=== PATIENT | female | born 1955 | race Caucasian/White ===

== ENCOUNTER 2019-09-05 12:02 | Outpatient (CLI) | payer BC | END 2019-09-05 12:03 | disposition home or self-care (01) | LOC: COV 12:02 | PROVIDERS: ATTEND Family Medicine | DX: R50.9 Fever, unspecified (principal); R53.83 Other fatigue; R11.2 Nausea with vomiting, unspecified; Z20.828 Contact with and (suspected) exposure to other viral communicable diseases ==

== ENCOUNTER 2024-05-23 10:46 | Inpatient (IN) ==
[2024-05-23 11:49] LABS: BASOPHILS # (AUTO) 0.1 10^3/uL (0.0-0.1); BASOPHILS % (AUTO) 1.1 %; EOSINOPHILS # (AUTO) 0.1 10^3/uL (0.0-0.7); EOSINOPHILS % (AUTO) 1.8 %; HCT - HEMATOCRIT 36.9 % (37.0-47.0); HGB - HEMOGLOBIN 11.5 g/dL (12.0-16.0); LYMPHOCYTES % (AUTO) 23.2 %; MEAN CORPUSCULAR HEMOGLOBIN 22.5 pg (27.0-31.0); MEAN CORPUSCULAR HGB CONC 31.2 g/dL (32.0-36.0); MEAN CORPUSCULAR VOLUME 72.2 fL (81.0-99.0); MEAN PLATELET VOLUME 8.8 fL (7.9-10.8); MONOCYTES # (AUTO) 0.9 10^3/uL (0.0-1.0); MONOCYTES % (AUTO) 20.9 %; NEUTROPHILS # (AUTO) 2.3 10^3/uL (1.5-6.6); NEUTROPHILS % (AUTO) 52.5 %; PLT - PLATELET COUNT 394 10^3/uL (130-450); RED BLOOD COUNT 5.11 10^6/uL (4.20-5.40); WHITE BLOOD COUNT 4.4 x10^3/uL (4.8-10.8)
--- NOTE | 2024-05-23 12:03 | ED Physician Documentation ---
History of Present Illness Stated complaint Stated Complaint: N,D Chief complaint Chief Complaint: Abd Pain History obtained from History obtained from: Patient Additonal information Additional information: This is a 69-year-old woman with history of insomnia, gastric bypass 17 years ago who presents for the evaluation of nausea, diarrhea and stomach cramps. For the last week she has had severe diarrhea, she estimates 20 times a day. It is not associated with bloody stool.. She has cramps with it and nausea but has not vomited. She has been very weak with this and basically stayed in bed for 4 days. She notes that she has a history of anemia and is being scheduled for both colonoscopies and hematology consult neither which have happened yet. She denies recent travel. No recent antibiotics. No sick contacts. Meds/Allgy Home Medications Ambulatory Orders Medication Instructions Recorded Confirmed alprazolam 1 mg tablet 1 mg PO QDAY 12/05/23 05/23/24 hydroxyzine HCl 10 mg tablet 10 mg PO TID PRN itching 12/05/23 05/23/24 trazodone 50 mg tablet 50 mg PO QDAY 12/05/23 05/23/24 ramelteon 8 mg tablet 8 mg PO DAILY 05/23/24 05/23/24 Allergies Allergies Allergy/AdvReac Type Severity Reaction Status Date / Time ondansetron Allergy Severe Rash Verified 05/23/24 11:19 PFSH Active Problems All Active Problems (Updated 05/23/24 @ 14:33 by Neel Gallagher MD) KEY (acute kidney injury) (Acute) Diarrhea (Acute) Abnormal laboratory test result (Acute) Hyponatremia (Acute) Microcytic hypochromic anemia (Acute) Neutrophilia (Acute) Medical History Medical History Asthma Surgical History Surgical History H/O hernia repair Bariatric surgery status Social History Social History (Updated 05/23/24 @ 12:38 by Ricardo Shannon RN, BSN) Smoking Status: Never smoker Relationship: Do you feel safe in your home environment?: Yes Suffered physical, verbal, emotional, or financial abuse?: No Exam Exam Vital Signs: Vital Signs x48h Temp Pulse Resp BP Pulse Ox 05/23/24 13:57 75 154/81 H 99 05/23/24 11:19 36.5 C 92 16 111/80 100 Constitutional normal general appearance and no apparent distress She is quite thin, I noticed that the nurse put in her weight is 98.2 kg. Suspect it is 98.2 pounds. Cardiovascular normal heart rate noted, regular rhythm noted and no murmur Gastrointestinal abdomen soft to palpation and nontender to palpation Diminished bowel tones Results Vitals Vitals: Vital Signs - 24 hr 05/23/24 11:19 05/23/24 13:57 Temperature 36.5 C Temperature Source Temporal Artery Scan Pulse Rate 92 75 Respiratory Rate 16 Blood Pressure 111/80 154/81 H O2 Saturation 100 99 O2 Source Room air Room air Pain Intensity 3 0 Oxygen O2 Source Room air Labs Labs: Laboratory Tests 05/23/24 05/23/24 11:41 13:53 WBC 4.4 L RBC 5.11 Hgb 11.5 L Hct 36.9 L MCV 72.2 L MCH 22.5 L MCHC 31.2 L RDW 19.0 H Plt Count 394 MPV 8.8 Neut # (Auto) 2.3 Lymph # (Auto) 1.0 L [place] # (Auto) 0.9 Eos # (Auto) 0.1 Baso # (Auto) 0.1 Absolute Nucleated RBC 0.00 Nucleated RBC % 0.0 Sodium 133 L Potassium 3.1 L Chloride 100 L Carbon Dioxide 23 Anion Gap 10.0 BUN 51 H Creatinine 2.7 H Estimated GFR (MDRD) 18 L Glucose 117 H Calcium 9.5 Iron 38 L TIBC 482 H % Saturation 8 L Transferrin 344 Total Bilirubin 0.5 AST 18 ALT 14 Alkaline Phosphatase 50 Total Protein 7.7 Albumin 4.3 Globulin 3.4 Albumin/Globulin Ratio 1.3 Lipase 27 Urine Color YELLOW Urine Clarity CLEAR Urine pH 5.5 Ur Specific [place] <=1.005 Urine Protein NEGATIVE Urine Glucose (UA) NEGATIVE Urine Ketones NEGATIVE Urine Occult Blood MODERATE H Urine Nitrite NEGATIVE Urine Bilirubin NEGATIVE Urine Urobilinogen 0.2 (NORMAL) Ur Leukocyte Esterase NEGATIVE Ur Microscopic Review INDICATED Urine Culture Comments Not Reportable Rads (name of study) CT Abd: Relevant Findings:: Final report received and EMP independent interpretation of test (NAD) PD Medical Decision Making ED course ED course: This is a 69-year-old woman status post remote gastric bypass and she is now actually quite thin. She presents with a weeks worth of diarrhea and nausea without vomiting. She has abdominal cramps but not pain per se. She has a benign exam. Workup demonstrates KEY without CKD. She has a mild microcytic anemia on CBC and a prerenal pattern with BUN of 51 and creatinine of 2.7. Her potassium was mildly low at 3.1. CT with oral but not IV contrast was basically negative. She did give us a stool sample in the department with results pending on decision to admit. Given the KEY spoke with Dr. Donahue for observation at 2:30 PM. The patient and family are counseled as to the diagnosis and need for admission. This document was made in part using voice recognition software, while efforts are made to proofread this document, sound alike an grammatical errors may occur. Discharge Plan Discharge Patient Disposition: ED Place in Observation Condition: Stable Clinical Impression: KEY (acute kidney injury) Diarrhea Qualifiers: Diarrhea type: unspecified type Qualified Code(s): R19.7 - Diarrhea, unspecified Prescriptions: No Action ramelteon 8 mg tablet 8 mg PO DAILY Patient Comments: take 1 tablet by mouth at bedtime alprazolam 1 mg tablet 1 mg PO QDAY hydroxyzine HCl 10 mg tablet 10 mg PO TID PRN (Reason: itching) trazodone 50 mg tablet 50 mg PO QDAY Print Language: Malay Stand Alone Forms: PCP List
[2024-05-23 12:06] LABS: ALBUMIN 4.3 g/dL (3.2-5.5); ALBUMIN/GLOBULIN RATIO 1.3 (1.0-2.2); BILIRUBIN,TOTAL 0.5 mg/dL (0.2-1.0); CALCIUM 9.5 mg/dL (8.5-10.3); CREATININE 2.7 mg/dL (0.6-1.3); POTASSIUM 3.1 mmol/L (3.5-4.5); TOTAL PROTEIN 7.7 g/dL (6.4-8.9)
[2024-05-23] MEDS ORDERED: DIATRIZOATE MEGLU/DIATRIZO SOD 30 ML BOTTLE PO ONE (12:24)
[2024-05-23 12:41] LABS: % IRON SATURATION 8 % (20-50); IRON 38 ug/dL (50-212); TOTAL IRON BINDING CAPACITY 482 ug/dL (250-450); TRANSFERRIN 344 mg/dL (203-362)
[2024-05-23] MEDS: SODIUM CHLORIDE 0.9% 1,000 ML IV STA ×2 (12:49→12:50)
[2024-05-23] MEDS: POTASSIUM BICARB 25 MEQ TABLET PO STA (12:50)
[2024-05-23] MEDS: METOCLOPRAMIDE 10 MG/2 ML VIAL IVP STA (12:50)
[2024-05-23 14:15] LABS: BILIRUBIN,URINE NEGATIVE (NEGATIVE); CLARITY,URINE CLEAR (CLEAR); GLUCOSE, URINE (UA) NEGATIVE (NEGATIVE); KETONES,URINE (UA) NEGATIVE (NEGATIVE); LEUKOCYTE ESTERASE, URINE NEGATIVE (NEGATIVE); NITRITE,URINE NEGATIVE (NEGATIVE); OCCULT BLOOD,URINE MODERATE (NEGATIVE); PH,URINE 5.5 PH (5.0-7.5); PROTEIN,URINE NEGATIVE (NEGATIVE); UROBILINOGEN,URINE 0.2 (NORMAL) E.U./dL (NORMAL)
--- NOTE | 2024-05-23 14:24 | CT Report ---
PROCEDURE: CT Abdomen/Pelvis WO INDICATIONS: PO! diarhea, hx gastric bypass TECHNIQUE: A CT scan of the abdomen and pelvis was performed without the use of intravenous contrast. Images we re recorded and evaluated at appropriate window settings. Reformats: coronal and sagittal. For radiat ion dose reduction, the following was used: automated exposure control, adjustment of mA and/or kV ac cording to patient size. COMPARISON: None. FINDINGS: Image quality: Diagnostic. Lower chest: Unremarkable. Liver: No contour-deforming mass. Gallbladder: No radiopaque stones or wall thickening. Biliary tree: No intrahepatic or extrahepatic dilation, accounting for age. Spleen: No splenomegaly. Pancreas: No pancreatic ductal dilation. Adrenals: No adrenal nodule. Kidneys and ureters: No hydronephrosis. No contour-deforming mass. Stomach, bowel and peritoneum: No gastric or small bowel dilation. No abnormal wall thickening. No pa thologic free fluid. Normal appendix. Prior gastric bypass. No significant diverticular disease. Lymph nodes: No central or retroperitoneal adenopathy. Vessels: No infrarenal aortic aneurysm. Reproductive organs: Unremarkable. Bladder: No abnormal bladder wall thickening. No calcified bladder stones. Pelvic lymph nodes: No adenopathy by size criteria. Bones: No aggressive osseous abnormality. Other: No significant ventral or inguinal hernia. IMPRESSION: No acute abnormality. Normal appendix. No significant diverticular disease. No bowel obstruction, status post gastric bypass. Reviewed by: Terry Pimentel MD on 05/23/2024 2:23 PM PDT Approved by: Terry Pimentel MD on 05/23/2024 2:23 PM PDT Station ID: [id number]
[2024-05-23 14:48] LABS: BACTERIA,URINE Moderate /HPF (None Seen); RBC,URINE 0-5 /HPF (0-5); SQUAMOUS EPITHELIAL CELL,UR MOD Squamous (<= Few)
[2024-05-23] MEDS ORDERED: ONDANSETRON 4 MG/2 ML VIAL IVP PRN (15:56)
[2024-05-23] MEDS ORDERED: oxyCODONE 5 MG TABLET PO PRN (15:56)
[2024-05-23] MEDS ORDERED: SODIUM CHLORIDE FLUSH 0.9% 10 ML SYRINGE IVP PRN (15:56)
[2024-05-23] MEDS ORDERED: ONDANSETRON ODT 4 MG TABLET TL PRN (15:56)
[2024-05-23] MEDS ORDERED: HYDROXYZINE 10MG TABLET PO PRN (16:25)
[2024-05-23] MEDS: LACTATED RINGERS 1,000 ML IV SCH (16:28)
[2024-05-23] MEDS: SODIUM CHLORIDE FLUSH 0.9% 10 ML SYRINGE IVP SCH (16:29)
--- NOTE | 2024-05-23 16:55 | PHARMACY PROGRESS NOTE ---
Best Possible Medication History Admit Date and Time: 05/23/24 1507 Home Medications Medication Instructions Recorded Confirmed Type alprazolam 1 mg tablet 0.5 mg PO HS 12/05/23 05/23/24 History trazodone 50 mg tablet 50 mg PO QDAY 12/05/23 05/23/24 History alendronate 70 mg tablet 70 mg PO ONCE 05/23/24 05/23/24 History baclofen 10 mg tablet 10 mg PO TID PRN muscle spasm 05/23/24 05/23/24 History citalopram 40 mg tablet 40 mg PO ONCE 05/23/24 05/23/24 History hydroxyzine HCl 25 mg tablet 25 mg PO HS 05/23/24 05/23/24 History ramelteon 8 mg tablet 8 mg PO DAILY 05/23/24 05/23/24 History tolterodine 2 mg capsule,extended 2 mg PO ONCE 05/23/24 05/23/24 History release 24 hr Processed by: Pharmacy Medications reviewed in ED?: No Medication History completed: Yes Patient Interview: Completed Secondary Source(s): Insurance records [facility] Statement: Per [facility] interview and [facility]. As the person ultimately responsible for medication therapy, providers are able to order a medication from an existing home medication list in [facility] via the "Reconcile Routine" prior to Confirmation of that medication by support representative. Such practice is discouraged except when the physician, in their clinical judgment, deems that a medical need exists for a medication without regard to previous use.
--- NOTE | 2024-05-23 17:20 | PROVIDER PROGRESS NOTE ---
Subjective Prog Note Date Prog Note Date: 05/23/24 Prog Note Time: 03:04 Subjective Subjective: Shari is a 69 y/o female with a history of Roue-en-y gastric bypass, umbilical hernia, and valvular HD presenting with diarrhea for 7 days since 05/16. She reports fever for 3 days at the beginning of her acute illness. Her CT abdomen w/o contrast on 05/23 was unremarkable--no signs of obstruction, hydronephrosis, diverticular disease, or other pathologies. She denies bloody stools, vomiting, sweating, or palpitations. Denies recent travel or exposures. She and her maintain a second home in [place] and she [place] [facility] and [facility]. The patient denies prior history of diarrhea, even after gastric bypass. She reports possible untreated diabetes. She reports her last colonoscopy was possibly 10 years ago and she is due for a repeat. She denies any GI issues including ulcers or food intolerances or previous food poisoning. The patient reports consuming BRAT diet d/t illness and requested to continue solid food. OB: Shari had two pregnancies via and menopause at age 51. Past medical/surgical: gastric bypass Roue-en-y, right knee repair, left shoulder repair, and umbilical hernia repair. Social: The patient is to her second , has two adult children, and one sister diagnosed with ALS for whom she is a caregiver. She denies alcohol, tobacco or other substance use. Family: both parents . Meds: Alendronate 70mg PO once, alprazolam 0.5 mg HS, baclofen 10mg PO TID PRN, citalopram 40mg PO once, hydroxyzine HCL 25mg PO HS, ramelteon 8mg PO daily, tolterodine 2mg PO once, trazodone 50mg PO qday. Supplements: Vitamin D and calcium. Allergies: Ondansetron (rash). Current Medications Current Medications Current Medications: Current Medications Generic Name Dose Route Start Last Admin Trade Name Freq PRN Reason Stop Dose Admin Acetaminophen 650 mg 05/23/24 15:56 Acetaminophen 325 Mg Tablet PO Q4HR PRN Pain 1 to 4, or Fever Alprazolam 1 mg 05/23/24 16:00 Alprazolam 0.25 Mg Tablet PO Q24H JACKELYN Lactated Ringer's 1,000 mls @ 100 mls/hr 05/23/24 16:00 Lr IV .Q10H [facility] Non-Formulary Medication 10 mg 05/23/24 15:56 Hydroxyzine Hcl PO TID PRN itching Ondansetron HCl 4 mg 05/23/24 15:56 Ondansetron Odt 4 Mg Tablet TL Q6HR PRN Nausea / Vomiting Ondansetron HCl 4 mg 05/23/24 15:56 Ondansetron 4 Mg/2 Ml Vial IVP Q6HR PRN Nausea / Vomiting Oxycodone HCl 5 mg 05/23/24 15:56 Oxycodone 5 Mg Tablet PO Q4HR PRN Pain 5 to 7 Rozerem 8mg Tabs 1 each 05/24/24 09:00 PO DAILY [facility] Sodium Chloride 10 ml 05/23/24 15:56 Sodium Chloride Flush 0.9% 10 Ml Syringe IVP PRN PRN NEEDED PER PROVIDER ORDERS Sodium Chloride 10 ml 05/23/24 17:00 Sodium Chloride Flush 0.9% 10 Ml Syringe IVP 0100,0900,1700 [facility] Trazodone HCl 50 mg 05/23/24 21:00 Trazodone 50 Mg Tablet PO QPM [facility] Objective Vital Signs/Intake & Output Reviewed Vital Signs: Yes Vital Signs: Vital Signs x48h Temp Pulse Resp BP Pulse Ox 05/23/24 15:50 82 16 117/82 100 05/23/24 15:00 72 14 161/86 H 98 05/23/24 13:57 75 154/81 H 99 05/23/24 11:19 36.5 C 92 16 111/80 100 Intake & Output: Intake & Output 05/20/24 05/21/24 05/22/24 05/23/24 23:59 23:59 23:59 23:59 Intake Total 1999 Balance 1999 Weight (kg) 46 kg Objective General Appearance: positive No acute distress, Alert and Lethargic Eyes Bilateral: positive Normal inspection, PERRL, No lid inflammation and Other (arcus senilis) Neck: positive Nml inspection Respiratory: positive Chest non-tender, No respiratory distress and Breath sounds nml Cardiovascular: positive Regular rate & rhythm Peripheral Pulses: 2+: Posterior tibialis (R) and 2+: Posterior tibialis (L) Abdomen: positive Non-tender, No organomegaly and No distention Back: positive Nml inspection Skin: positive No rash, Dry, Pallor and Other (Cold) Extremities: positive Non-tender, Full ROM, Nml appearance and No pedal edema Neurologic/Psychiatric: positive Oriented x3, Motor nml, Sensation nml and Mood/affect nml Lab Results 05/23/24 11:41 05/23/24 11:41 Other Labs: Lab Results x24hrs 05/23/24 05/23/24 05/23/24 Range/Units 14:24 13:53 13:53 WBC (4.8-10.8) x10^3/uL RBC (4.20-5.40) 10^6/uL Hgb (12.0-16.0) g/dL Hct (37.0-47.0) % MCV (81.0-99.0) fL MCH (27.0-31.0) pg MCHC (32.0-36.0) g/dL RDW (12.0-15.0) % Plt Count (130-450) 10^3/uL MPV (7.9-10.8) fL Neut # (Auto) (1.5-6.6) 10^3/uL Lymph # (Auto) (1.5-3.5) 10^3/uL [place] # (Auto) (0.0-1.0) 10^3/uL Eos # (Auto) (0.0-0.7) 10^3/uL Baso # (Auto) (0.0-0.1) 10^3/uL Absolute Nucleated RBC x10^3/uL Nucleated RBC % /100WBC Sodium (135-145) mmol/L Potassium (3.5-4.5) mmol/L Chloride (101-111) mmol/L Carbon Dioxide (21-32) mmol/L Anion Gap (6-13) BUN (6-20) mg/dL Creatinine (0.6-1.3) mg/dL Estimated GFR (MDRD) (>89) Glucose (74-104) mg/dL Calcium (8.5-10.3) mg/dL Iron (50-212) ug/dL TIBC (250-450) ug/dL % Saturation (20-50) % Transferrin (203-362) mg/dL Total Bilirubin (0.2-1.0) mg/dL AST (10-42) IU/L ALT (10-60) IU/L Alkaline Phosphatase (42-121) IU/L Total Protein (6.4-8.9) g/dL Albumin (3.2-5.5) g/dL Globulin (2.1-4.2) g/dL Albumin/Globulin Ratio (1.0-2.2) Lipase (11-82) U/L Urine Color YELLOW Urine Clarity CLEAR (CLEAR) Urine pH 5.5 (5.0-7.5) PH Ur Specific [place] <=1.005 (1.002-1.030) Urine Protein NEGATIVE (NEGATIVE) mg/dL Urine Glucose (UA) NEGATIVE (NEGATIVE) mg/dL Urine Ketones NEGATIVE (NEGATIVE) mg/dL Urine Occult Blood MODERATE H (NEGATIVE) Urine Nitrite NEGATIVE (NEGATIVE) Urine Bilirubin NEGATIVE (NEGATIVE) Urine Urobilinogen 0.2 (NORMAL) (NORMAL) E.U./dL Ur Leukocyte Esterase NEGATIVE (NEGATIVE) Urine RBC 0-5 (0-5) /HPF Urine WBC 4-5 (0-5) /HPF Ur Squamous Epith Cells MOD Squamous H (<= Few) Urine Bacteria Moderate H (None Seen) /HPF Urine Casts 0-2 Granular Casts 0-2 Hyaline Casts /LPF Ur Microscopic Review INDICATED Urine Culture Comments NOT INDICATED Stl C. diff Tox B Gene NEGATIVE (NEGATIVE) 05/23/24 Range/Units 11:41 WBC 4.4 L (4.8-10.8) x10^3/uL RBC 5.11 (4.20-5.40) 10^6/uL Hgb 11.5 L (12.0-16.0) g/dL Hct 36.9 L (37.0-47.0) % MCV 72.2 L (81.0-99.0) fL MCH 22.5 L (27.0-31.0) pg MCHC 31.2 L (32.0-36.0) g/dL RDW 19.0 H (12.0-15.0) % Plt Count 394 (130-450) 10^3/uL MPV 8.8 (7.9-10.8) fL Neut # (Auto) 2.3 (1.5-6.6) 10^3/uL Lymph # (Auto) 1.0 L (1.5-3.5) 10^3/uL [place] # (Auto) 0.9 (0.0-1.0) 10^3/uL Eos # (Auto) 0.1 (0.0-0.7) 10^3/uL Baso # (Auto) 0.1 (0.0-0.1) 10^3/uL Absolute Nucleated RBC 0.00 x10^3/uL Nucleated RBC % 0.0 /100WBC Sodium 133 L (135-145) mmol/L Potassium 3.1 L (3.5-4.5) mmol/L Chloride 100 L (101-111) mmol/L Carbon Dioxide 23 (21-32) mmol/L Anion Gap 10.0 (6-13) BUN 51 H (6-20) mg/dL Creatinine 2.7 H (0.6-1.3) mg/dL Estimated GFR (MDRD) 18 L (>89) Glucose 117 H (74-104) mg/dL Calcium 9.5 (8.5-10.3) mg/dL Iron 38 L (50-212) ug/dL TIBC 482 H (250-450) ug/dL % Saturation 8 L (20-50) % Transferrin 344 (203-362) mg/dL Total Bilirubin 0.5 (0.2-1.0) mg/dL AST 18 (10-42) IU/L ALT 14 (10-60) IU/L Alkaline Phosphatase 50 (42-121) IU/L Total Protein 7.7 (6.4-8.9) g/dL Albumin 4.3 (3.2-5.5) g/dL Globulin 3.4 (2.1-4.2) g/dL Albumin/Globulin Ratio 1.3 (1.0-2.2) Lipase 27 (11-82) U/L Urine Color Urine Clarity (CLEAR) Urine pH (5.0-7.5) PH Ur Specific [place] (1.002-1.030) Urine Protein (NEGATIVE) mg/dL Urine Glucose (UA) (NEGATIVE) mg/dL Urine Ketones (NEGATIVE) mg/dL Urine Occult Blood (NEGATIVE) Urine Nitrite (NEGATIVE) Urine Bilirubin (NEGATIVE) Urine Urobilinogen (NORMAL) E.U./dL Ur Leukocyte Esterase (NEGATIVE) Urine RBC (0-5) /HPF Urine WBC (0-5) /HPF Ur Squamous Epith Cells (<= Few) Urine Bacteria (None Seen) /HPF Urine Casts /LPF Ur Microscopic Review Urine Culture Comments Stl C. diff Tox B Gene (NEGATIVE) Diagnostic Imaging Diagnostic Imaging Results: positive Final report reviewed ABX Reporting Has patient been on IV antibiotics over the past 48 hours?: No Assessment/Plan Problem List (1) KEY (acute kidney injury): (2) Diarrhea: Qualifiers: Diarrhea type: unspecified type Qualified Code(s): R19.7 - Diarrhea, unspecified (3) Abnormal laboratory test result: (4) Hyponatremia: (5) Microcytic hypochromic anemia: (6) Neutrophilia:
--- NOTE | 2024-05-23 17:41 | HISTORY & PHYSICAL EXAMINATION ---
Chief Complaint Chief Complaint Chief Complaint: diarrhea and abdominal pain History of Present Illness Admitted From Admitted From:: home History Obtained From Records Reviewed: [facility] History obtained from: patient Exam Limitations: none History of Present Illness HPI Comment/Other: Shari is a 69 y/o female with a history of Roue-en-y gastric bypass, umbilical hernia, and valvular HD presenting with diarrhea for 7 days since 05/16. She reports fever for 3 days at the beginning of her acute illness. Her CT abdomen w/o contrast on 05/23 was unremarkable--no signs of obstruction, hydronephrosis, diverticular disease, or other pathologies. She denies bloody stools, vomiting, sweating, or palpitations. Denies recent travel or exposures. She and her maintain a second home in [place] and she travels between [facility] and [facility]. The patient denies prior history of diarrhea, even after gastric bypass. She reports possible untreated diabetes. She reports her last colonoscopy was possibly 10 years ago and she is due for a repeat. She denies any GI issues including ulcers or food intolerances or previous food poisoning. The patient reports consuming BRAT diet d/t illness and requested to continue solid food. Meds/Allgy Home Medications Ambulatory Orders Medication Instructions Recorded Confirmed alprazolam 1 mg tablet 0.5 mg PO HS 12/05/23 05/23/24 trazodone 50 mg tablet 50 mg PO QDAY 12/05/23 05/23/24 alendronate 70 mg tablet 70 mg PO ONCE 05/23/24 05/23/24 baclofen 10 mg tablet 10 mg PO TID PRN muscle spasm 05/23/24 05/23/24 citalopram 40 mg tablet 40 mg PO ONCE 05/23/24 05/23/24 hydroxyzine HCl 25 mg tablet 25 mg PO HS 05/23/24 05/23/24 ramelteon 8 mg tablet 8 mg PO DAILY 05/23/24 05/23/24 tolterodine 2 mg capsule,extended 2 mg PO ONCE 05/23/24 05/23/24 release 24 hr Allergies Allergies Allergy/AdvReac Type Severity Reaction Status Date / Time ondansetron Allergy Severe Rash Verified 05/23/24 11:19 PFSH Active Problems All Active Problems (Updated 05/23/24 @ 17:55 by Laura Olmstead) Hypokalemia (Acute) KEY (acute kidney injury) (Acute) Diarrhea (Acute) Abnormal laboratory test result (Acute) Hyponatremia (Acute) Microcytic hypochromic anemia (Acute) Neutrophilia (Acute) Medical History Medical History (Updated 05/23/24 @ 17:55 by Laura Olmstead) Splenic rupture fell off a kitchen counter and hit corner to rupture spleen and lacerate kidney. had surgery History of umbilical hernia Right patella fracture Multiparity 2 pregnancies Asthma Surgical History Surgical History (Updated 05/23/24 @ 17:47 by Laura Olmstead) Status post total shoulder arthroplasty H/O gastric bypass History of 2 H/O hernia repair Bariatric surgery status Family History Family History (Updated 05/23/24 @ 17:49 by Laura Olmstead) Mother Alzheimers disease Father Alzheimers disease Sister ALS (amyotrophic lateral sclerosis) Son Well adult exam Social History Social History (Updated 05/23/24 @ 17:51 by Laura Olmstead) Smoking Status: Former smoker If you are a former smoker, when did you quit? (Date/Year): 1978 Number of Years Smoked: 4 How many cigarettes a day do you smoke? (20 cigarettes=1 Pk): 5 Second hand tobacco smoke exposure: No Do you dip or chew tobacco?: No Living arrangement: At home Marital Status: Living Condition: With spouse/s.o. Support Person: Yes Relationship: Spouse Living Situation Details: to 2nd , home in [facility]. 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 Retired: Yes Service: No POLST Patient has POLST: No POLST Status: Full Code Review of Systems Constitutional Reports: Fever (for first 3 days of diarrea), Chills, Malaise, Weakness (couldn't get out of bed for 2 days) and Changes in appetite or eating habits (no appetite); Denies: Fatigue Eyes Denies: Pain, Irritation, Amaurosis, Blurry vision or Seeing flashes Ears, nose, mouth, and throat Denies: Ear pain, Mouth pain, Difficulty swallowing, Neck pain or Throat swelling Cardiovascular Reports: other (has a murmur of regurg but doesn't know which one); Denies: Irregular heart rate, chest pain, palpitations, edema, swelling of feet/ankles, Syncope or shortness of breath with exertion Respiratory Denies: Shortness of breath, Cough, Sputum production, Change in phlegm color or Wheezing Gastrointestinal Reports: Abdominal pain, Abdominal distention, Nausea, Poor appetite and Diarrhea; Denies: Bile emesis, Mauricio blood emesis, Coffee grounds in vomit, Heartburn, Difficulty swallowing, Melena, Blood in stool or Mucus in stool Genitourinary Denies: Painful urination, Urinary frequency, Urinary urgency, Nocturia, Urinary incontinence or Blood in urine Musculoskeletal Denies: Neck pain, Extremity pain or Extremity swelling Integumentary/Breast Denies: Rash, Itching or Dryness Neurological Reports: Dizziness (with this); Denies: Headache Psychiatric Reports: Other (worrier all the time) Endocrine Reports: Other (thinks she is a diabetic not sure); Denies: Fatigue Hematologic/Lymphatic Reports: Anemia (seen on labs for gastric bypass); Denies: Easy bruising or Petechiae Allergic/Immunologic Denies: Throat swelling or Wheezing Prior Level of Functionality: no use of DME. Independent with ADLs. drives, pays bills Exam Exam Vital Signs: Vital Signs x48h Temp Pulse Pulse Resp BP Pulse Ox 05/24/24 07:24 36.1 C L 80 16 109/58 L 97 05/24/24 04:07 36.5 C 88 16 110/57 L 97 Constitutional normal general appearance and alert [facility] normocephalic Eyes PERRL and EOMs intact bilaterally arcus senilis Neck/C-Spine visual inspection normal Chest inspection of chest normal Respiratory breath sounds equal bilaterally, normal respiratory effort, clear to auscultation bilaterally, no wheezes and no rales Cardiovascular normal heart rate noted and regular rhythm noted Gastrointestinal abdomen normal to inspection, abdomen soft to palpation, nontender to palpation and nondistended Back/Pelvis spine normal to inspection Extremities normal to inspection, normal to palpation, no tenderness and full ROM Neurology no movement abnormality noted, gait normal and speech normal Psychiatry mental status grossly normal, oriented x3, thought process normal, cooperative and affect normal Skin no rash, no lesions, no ecchymosis noted, no wounds and nails normal Pallor Conclusion/Plan Problem List (1) KEY (acute kidney injury): Plan: Creatinine: 2.7 mg/dL. BUN: 57 mg/dL. GFR: 18. Patient was severely dehydrated on admission d/t acute diarrheal illness x7 days. She is currently receiving lactated ringers 100 mls/hr and was given normal saline open mls/hr. Recheck creatinine, GFR, and BUN for improvement tomorrow morning 05/24. (2) Diarrhea: Plan: Patient reports diarrhea x7 days. CT abdomen w/o contrast was unremarkable. Labs ordered are stool PCR, culture, O&P pending. C. difficile PCR was negative. Patient was given Lomitil 1 tab PO QID PRN to treat diarrhea. Qualifiers: Diarrhea type: unspecified type Qualified Code(s): R19.7 - Diarrhea, unspecified (3) Hyponatremia: Plan: Sodium in ED was 133 mmol/L. Patient was given wide open mls/hr normal saline in ED. Sodium will be rechecked 05/24. (4) Hypokalemia: Plan: Potassium was 100 mmol/L. Patient was given potassium bicarbonate in ED 25 meq PO once. Potassium will be rechecked 05/24. (5) Microcytic hypochromic anemia: Plan: Patient's iron, hemoglobin, TIBC, and iron saturation were significantly low. Will follow up with CBC again tomorrow 05/24 to recheck after hydration. Recommending outpatient IV iron infusion. Vitamin B12 on 05/24 is elevated at 1258 pg/mL. Will recommend following up with PCP to monitor. (6) Neutrophilia: Plan: Neutrophilia is likely the result of the patient's dehydration. Recheck neutrophil count (CBC) after patient has been adequately hydrated on 05/24. Plan Address acute KEY as a result of diarrheal illness with goal of decreasing creatinine, BUN and increasing GFR. Stabilize sodium and potassium levels. Patient will address chronic anemia with her PCP and is following up with a carbon paper interleafer. Continue Lomitil PRN until diarrhea resolves. Stool labs are pending. Lab Results Lab results reviewed: Yes 05/24/24 04:05 05/24/24 04:05 Diagnostic Imaging Results Diagnostic Imaging Results: positive Final report reviewed
[2024-05-23] MEDS: ALPRAZolam 0.25 MG TABLET PO SCH ×2 (17:55→22:48)
[2024-05-23] MEDS: LACTATED RINGERS 500 ML IV ONE (21:43)
[2024-05-23] MEDS: hydrOXYzine PAMOATE 25 MG CAPSULE PO SCH (22:47)
[2024-05-23] MEDS: traZODone 50 MG TABLET PO SCH (22:47)
[2024-05-24] MEDS: DIPHENOX/ATROPINE 2.5/0.025 MG TABLET PO PRN (04:13)
[2024-05-24 04:44] LABS: BASOPHILS % (AUTO) 0.8 %; EOSINOPHILS # (AUTO) 0.1 10^3/uL (0.0-0.7); EOSINOPHILS % (AUTO) 2.6 %; HCT - HEMATOCRIT 26.3 % (37.0-47.0); HGB - HEMOGLOBIN 8.3 g/dL (12.0-16.0); LYMPHOCYTES # (AUTO) 1.1 10^3/uL (1.5-3.5); LYMPHOCYTES % (AUTO) 27.4 %; MEAN CORPUSCULAR HEMOGLOBIN 22.7 pg (27.0-31.0); MEAN CORPUSCULAR HGB CONC 31.6 g/dL (32.0-36.0); MEAN CORPUSCULAR VOLUME 71.9 fL (81.0-99.0); MEAN PLATELET VOLUME 9.2 fL (7.9-10.8); MONOCYTES # (AUTO) 0.7 10^3/uL (0.0-1.0); MONOCYTES % (AUTO) 18.9 %; PLT - PLATELET COUNT 267 10^3/uL (130-450); RED BLOOD COUNT 3.66 10^6/uL (4.20-5.40); RED CELL DISTRIBUTION WIDTH 18.6 % (12.0-15.0); WHITE BLOOD COUNT 3.9 x10^3/uL (4.8-10.8)
[2024-05-24 04:56] LABS: CALCIUM 8.3 mg/dL (8.5-10.3); CREATININE 1.2 mg/dL (0.6-1.3); POTASSIUM 3.5 mmol/L (3.5-4.5)
[2024-05-24 05:25] LABS: ABSOLUTE RETICS # AUTO 0.018 10^6/uL (0.020-0.110); RED BLOOD COUNT 3.64 10^6/uL (4.20-5.40); RETICULOCYTE COUNT % (AUTO) 0.48 % (0.5-2.3)
[2024-05-24 05:33] LABS: IRON 38 ug/dL (50-212); TRANSFERRIN 225 mg/dL (203-362)
[2024-05-24 06:09] LABS: ADENOVIRUS F 40/41 Not Detected (Not Detected); ASTROVIRUS Not Detected (Not Detected); C DIFFICILE TOXIN A/B Not Detected (Not Detected); CAMPYLOBACTER Detected (Not Detected); CRYPTOSPORIDIUM Not Detected (Not Detected); CYCLOSPORA CAYETANENSIS Not Detected (Not Detected); ENTAMOEBA HISTOLYTICA Not Detected (Not Detected); ENTEROAGGREGATIVE E COLI Not Detected (Not Detected); ENTEROPATHOGENIC E COLI Not Detected (Not Detected); ENTEROTOXIGENIC E COLI Not Detected (Not Detected); GIARDIA LAMBLIA Not Detected (Not Detected); NOROVIRUS GI/GII Not Detected (Not Detected); PLESIOMONAS SHIGELLOIDES Not Detected (Not Detected); ROTAVIRUS A Not Detected (Not Detected); SALMONELLA Not Detected (Not Detected); SAPOVIRUS Not Detected (Not Detected); SHIGA-TOXIN-PRODUCING E COLI Not Detected (Not Detected); SHIGELLA/ENTEROINVASIVE E COLI Not Detected (Not Detected); VIBRIO Not Detected (Not Detected); VIBRIO CHOLERAE Not Detected (Not Detected); YERSINIA ENTEROCOLITICA Not Detected (Not Detected)
[2024-05-24] MEDS: ROZEREM 8 MG PO SCH (10:40)
--- NOTE | 2024-05-24 11:19 | PROVIDER PROGRESS NOTE ---
<Statement entered by Sebastian Hoyos MD - 05/24/24 21:00> I have evaluated and examined the pt and agree with the note below with the following additions and corrections: Continued watery diarrhea, nonbloody, minimal abd pain. Tolerating po intake. No gross bleeding. Notes chronic history of anemia and "abnormal" blood tests in recent months. She has f/u with hematology and PMD. H/o gastric bypass noted. Labs indicate Fe deficiency- likely poor absorption in setting of gastric bypass. Significant hgb drop overnight likely due in part to hemoconcentration on arrival. KEY improving. 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 She reports 4 bouts of diarrhea this morning after eating eggs and sausage for breakfast. A bland diet was recommended to the patient until her diarrhea subsides. The patient reports feeling fatigued, but denies fever, chills, body aches or any new symptoms. She does not recall eating anything unusual before her acute diarrhea. Lab results were discussed with the patient, including Campylobacter detection in her stool and low hemoglobin. The patient is concerned about her blood and asked additional questions about her chronic anemia. She reports that she has followed up with her PCP and a hematology referral. A recommendation for iron infusion was discussed with her. Antibiotic therapy with azithromycin was discussed with the patient to eradicate Campylobacter infection. Current Medications Current Medications Current Medications: Current Medications Generic Name Dose Route Start Last Admin Trade Name Freq PRN Reason Stop Dose Admin Acetaminophen 650 mg 05/23/24 15:56 Acetaminophen 325 Mg Tablet PO Q4HR PRN Pain 1 to 4, or Fever Alprazolam 0.5 mg 05/23/24 23:00 05/23/24 22:48 Alprazolam 0.25 Mg Tablet PO 0.5 mg Q24H JACKELYN Administration Diphenoxylate HCl/Atropine 1 tab 05/23/24 17:29 05/24/24 10:40 Diphenox/Atropine 2.5/0.025 Mg Tablet PO 1 tab QID PRN Administration Diarrhea Hydroxyzine Pamoate 25 mg 05/23/24 21:00 05/23/24 22:47 Hydroxyzine Pamoate 25 Mg Capsule PO 25 mg HS JACKELYN Administration Lactated Ringer's 1,000 mls @ 100 mls/hr 05/23/24 16:00 05/24/24 06:52 Lr IV 100 mls/hr .Q10H JACKELYN Administration Ondansetron HCl 4 mg 05/23/24 15:56 Ondansetron Odt 4 Mg Tablet TL Q6HR PRN Nausea / Vomiting Ondansetron HCl 4 mg 05/23/24 15:56 Ondansetron 4 Mg/2 Ml Vial IVP Q6HR PRN Nausea / Vomiting Oxycodone HCl 5 mg 05/23/24 15:56 Oxycodone 5 Mg Tablet PO Q4HR PRN Pain 5 to 7 Rozerem 8mg Tabs 1 each 05/24/24 09:00 05/24/24 10:40 PO Not Given DAILY JACKELYN Sodium Chloride 10 ml 05/23/24 15:56 Sodium Chloride Flush 0.9% 10 Ml Syringe IVP PRN PRN NEEDED PER PROVIDER ORDERS Sodium Chloride 10 ml 05/23/24 17:00 05/24/24 09:14 Sodium Chloride Flush 0.9% 10 Ml Syringe IVP 10 ml 0100,0900,1700 JACKELYN Administration Trazodone HCl 50 mg 05/23/24 21:00 05/23/24 22:47 Trazodone 50 Mg Tablet PO 50 mg QPM JACKELYN Administration Objective Vital Signs/Intake & Output Reviewed Vital Signs: Yes Vital Signs: Vital Signs x48h Temp Pulse Pulse Resp BP Pulse Ox 05/24/24 07:24 36.1 C L 80 16 109/58 L 97 05/24/24 04:07 36.5 C 88 16 110/57 L 97 Intake & Output: Intake & Output 05/21/24 05/22/24 05/23/24 05/24/24 23:59 23:59 23:59 23:59 Intake Total 2740 / 2740 1240 / 1240 Output Total 200 / 200 Balance 2540 / 2540 1240 / 1240 Weight (kg) 46 kg Objective General Appearance: positive No acute distress and Alert Eyes Bilateral: positive Normal inspection Abdomen: positive Non-tender, No organomegaly and No distention Skin: positive Color nml and No rash Extremities: positive Non-tender, Nml appearance and No pedal edema Neurologic/Psychiatric: positive Oriented x3, Motor nml and Mood/affect nml Lab Results 05/24/24 04:05 05/24/24 04:05 Other Labs: Lab Results x24hrs 05/24/24 05/24/24 05/23/24 Range/Units 04:05 04:05 14:24 WBC 3.9 L (4.8-10.8) x10^3/uL RBC 3.64 L 3.66 L (4.20-5.40) 10^6/uL Hgb 8.3 L (12.0-16.0) g/dL Hct 26.3 L (37.0-47.0) % MCV 71.9 L (81.0-99.0) fL MCH 22.7 L (27.0-31.0) pg MCHC 31.6 L (32.0-36.0) g/dL RDW 18.6 H (12.0-15.0) % Plt Count 267 (130-450) 10^3/uL MPV 9.2 (7.9-10.8) fL Reticulocyte % (Auto) 0.48 L (0.5-2.3) % Neut # (Auto) 2.0 (1.5-6.6) 10^3/uL Lymph # (Auto) 1.1 L (1.5-3.5) 10^3/uL Keith # (Auto) 0.7 (0.0-1.0) 10^3/uL Eos # (Auto) 0.1 (0.0-0.7) 10^3/uL Baso # (Auto) 0.0 (0.0-0.1) 10^3/uL Absolute Nucleated RBC 0.00 x10^3/uL Nucleated RBC % 0.0 /100WBC Absolute Retic 0.018 L (0.020-0.110) 10^6/uL Sodium 139 (135-145) mmol/L Potassium 3.5 (3.5-4.5) mmol/L Chloride 110 (101-111) mmol/L Carbon Dioxide 25 (21-32) mmol/L Anion Gap 4.0 L (6-13) BUN 29 H (6-20) mg/dL Creatinine 1.2 (0.6-1.3) mg/dL Estimated GFR (MDRD) 45 L (>89) Glucose 93 (74-104) mg/dL Calcium 8.3 L (8.5-10.3) mg/dL Iron 38 L (50-212) ug/dL TIBC (250-450) ug/dL % Saturation (20-50) % Transferrin 225 (203-362) mg/dL Total Bilirubin (0.2-1.0) mg/dL AST (10-42) IU/L ALT (10-60) IU/L Alkaline Phosphatase (42-121) IU/L Lactate Dehydrogenase 102 L (140-271) IU/L Total Protein (6.4-8.9) g/dL Albumin (3.2-5.5) g/dL Globulin (2.1-4.2) g/dL Albumin/Globulin Ratio (1.0-2.2) Lipase (11-82) U/L Vitamin B12 1258 H (180-914) pg/mL Urine Color Urine Clarity (CLEAR) Urine pH (5.0-7.5) PH Ur Specific Hoffman (1.002-1.030) Urine Protein (NEGATIVE) mg/dL Urine Glucose (UA) (NEGATIVE) mg/dL Urine Ketones (NEGATIVE) mg/dL Urine Occult Blood (NEGATIVE) Urine Nitrite (NEGATIVE) Urine Bilirubin (NEGATIVE) Urine Urobilinogen (NORMAL) E.U./dL Ur Leukocyte Esterase (NEGATIVE) Urine RBC (0-5) /HPF Urine WBC (0-5) /HPF Ur Squamous Epith Cells (<= Few) Urine Bacteria (None Seen) /HPF Urine Casts /LPF Ur Microscopic Review Urine Culture Comments Stl C. cayetanensis PCR Not Detected (Not Detected) Stool Rotavirus A PCR Not Detected (Not Detected) Stl Adenov F 40/41 PCR Not Detected (Not Detected) Stool Astrovirus (PCR) Not Detected (Not Detected) Stool Campylobacter PCR Detected A (Not Detected) Stl C. diff Tox B Gene NEGATIVE (NEGATIVE) Stl C. diff Tox A/B PCR Not Detected (Not Detected) Stool Cryptosporidium PCR Not Detected (Not Detected) Stl Sh Tox Pr E STEC PCR Not Detected (Not Detected) Stool E coli O157 PCR Not applicable (Not Detected) Stl Enterotoxigenic E PCR Not Detected (Not Detected) Stool EPEC (PCR) Not Detected (Not Detected) Stl E. histolytica PCR Not Detected (Not Detected) Stool Giardia Lamblia PCR Not Detected (Not Detected) Stl P. shigelloides PCR Not Detected (Not Detected) Stool Salmonella PCR Not Detected (Not Detected) Stool Sapovirus (PCR) Not Detected (Not Detected) Stl Shigella/EIEC PCR Not Detected (Not Detected) St Y.enterocolitica PCR Not Detected (Not Detected) Stool Vibrio (PCR) Not Detected (Not Detected) Stl Vibrio cholerae PCR Not Detected (Not Detected) Stl Enteroaggr Ecoli PCR Not Detected (Not Detected) Stl Norovirus GI/GII PCR Not Detected (Not Detected) 05/23/24 05/23/24 05/23/24 Range/Units 13:53 13:53 11:41 WBC 4.4 L (4.8-10.8) x10^3/uL RBC 5.11 (4.20-5.40) 10^6/uL Hgb 11.5 L (12.0-16.0) g/dL Hct 36.9 L (37.0-47.0) % MCV 72.2 L (81.0-99.0) fL MCH 22.5 L (27.0-31.0) pg MCHC 31.2 L (32.0-36.0) g/dL RDW 19.0 H (12.0-15.0) % Plt Count 394 (130-450) 10^3/uL MPV 8.8 (7.9-10.8) fL Reticulocyte % (Auto) (0.5-2.3) % Neut # (Auto) 2.3 (1.5-6.6) 10^3/uL Lymph # (Auto) 1.0 L (1.5-3.5) 10^3/uL Keith # (Auto) 0.9 (0.0-1.0) 10^3/uL Eos # (Auto) 0.1 (0.0-0.7) 10^3/uL Baso # (Auto) 0.1 (0.0-0.1) 10^3/uL Absolute Nucleated RBC 0.00 x10^3/uL Nucleated RBC % 0.0 /100WBC Absolute Retic (0.020-0.110) 10^6/uL Sodium 133 L (135-145) mmol/L Potassium 3.1 L (3.5-4.5) mmol/L Chloride 100 L (101-111) mmol/L Carbon Dioxide 23 (21-32) mmol/L Anion Gap 10.0 (6-13) BUN 51 H (6-20) mg/dL Creatinine 2.7 H (0.6-1.3) mg/dL Estimated GFR (MDRD) 18 L (>89) Glucose 117 H (74-104) mg/dL Calcium 9.5 (8.5-10.3) mg/dL Iron 38 L (50-212) ug/dL TIBC 482 H (250-450) ug/dL % Saturation 8 L (20-50) % Transferrin 344 (203-362) mg/dL Total Bilirubin 0.5 (0.2-1.0) mg/dL AST 18 (10-42) IU/L ALT 14 (10-60) IU/L Alkaline Phosphatase 50 (42-121) IU/L Lactate Dehydrogenase (140-271) IU/L Total Protein 7.7 (6.4-8.9) g/dL Albumin 4.3 (3.2-5.5) g/dL Globulin 3.4 (2.1-4.2) g/dL Albumin/Globulin Ratio 1.3 (1.0-2.2) Lipase 27 (11-82) U/L Vitamin B12 (180-914) pg/mL Urine Color YELLOW Urine Clarity CLEAR (CLEAR) Urine pH 5.5 (5.0-7.5) PH Ur Specific Hoffman <=1.005 (1.002-1.030) Urine Protein NEGATIVE (NEGATIVE) mg/dL Urine Glucose (UA) NEGATIVE (NEGATIVE) mg/dL Urine Ketones NEGATIVE (NEGATIVE) mg/dL Urine Occult Blood MODERATE H (NEGATIVE) Urine Nitrite NEGATIVE (NEGATIVE) Urine Bilirubin NEGATIVE (NEGATIVE) Urine Urobilinogen 0.2 (NORMAL) (NORMAL) E.U./dL Ur Leukocyte Esterase NEGATIVE (NEGATIVE) Urine RBC 0-5 (0-5) /HPF Urine WBC 4-5 (0-5) /HPF Ur Squamous Epith Cells MOD Squamous H (<= Few) Urine Bacteria Moderate H (None Seen) /HPF Urine Casts 0-2 Granular Casts 0-2 Hyaline Casts /LPF Ur Microscopic Review INDICATED Urine Culture Comments NOT INDICATED Stl C. cayetanensis PCR (Not Detected) Stool Rotavirus A PCR (Not Detected) Stl Adenov F 40/41 PCR (Not Detected) Stool Astrovirus (PCR) (Not Detected) Stool Campylobacter PCR (Not Detected) Stl C. diff Tox B Gene (NEGATIVE) Stl C. diff Tox A/B PCR (Not Detected) Stool Cryptosporidium PCR (Not Detected) Stl Sh Tox Pr E STEC PCR (Not Detected) Stool E coli O157 PCR (Not Detected) Stl Enterotoxigenic E PCR (Not Detected) Stool EPEC (PCR) (Not Detected) Stl E. histolytica PCR (Not Detected) Stool Giardia Lamblia PCR (Not Detected) Stl P. shigelloides PCR (Not Detected) Stool Salmonella PCR (Not Detected) Stool Sapovirus (PCR) (Not Detected) Stl Shigella/EIEC PCR (Not Detected) St Y.enterocolitica PCR (Not Detected) Stool Vibrio (PCR) (Not Detected) Stl Vibrio cholerae PCR (Not Detected) Stl Enteroaggr Ecoli PCR (Not Detected) Stl Norovirus GI/GII PCR (Not Detected) Diagnostic Imaging Diagnostic Imaging Results: positive Final report reviewed Assessment/Plan Problem List (1) KEY (acute kidney injury): Impression: Patient's kidney function has improved on 05/24: GFR: Increase from 18 to 45. Creatinine: Decreased from 2.7 to 1.2 mg/dL. BUN: Decreased from 51 to 29 mg/dL. Kidney function will be rechecked on 05/25. (2) Diarrhea: Impression: Patient reports continuing bouts of diarrhea--4x this morning. Discussed Campylobacter detection in stool and will prescribe azithromycin course for 3 days. Recommended continuing on bland (BRAT) diet until diarrhea subsides. Continue IV fluids and recheck status on 05/25. Qualifiers: Diarrhea type: unspecified type Qualified Code(s): R19.7 - Diarrhea, unspecified (3) Hyponatremia: Impression: Patient's sodium has normalized from 133 to 139 mmol/L. (4) Hypokalemia: Impression: Patient's potassium normalized from 3.1 to 3.5 mmol/L. (5) Microcytic hypochromic anemia: Impression: Patient's chronic anemia persists. Her hemoglobin decreased from 11.5 to 8.3 g/dL. Will continue to monitor and recheck on 05/25. She discussed chronic anemia with her PCP and already has a referral to a rn spine. (6) Neutrophilia: Impression: Patient's neutrophilia is due to positive Campylobacter infection. Patient will be treated with azithromycin.
[2024-05-24] MEDS: AZITHROMYCIN 250 MG TABLET PO SCH (13:33)
[2024-05-24] MEDS: ACETAMINOPHEN 325 MG TABLET PO PRN (16:16)
[2024-05-25 06:05] LABS: BASOPHILS # (AUTO) 0.1 10^3/uL (0.0-0.1); BASOPHILS % (AUTO) 1.1 %; EOSINOPHILS # (AUTO) 0.2 10^3/uL (0.0-0.7); EOSINOPHILS % (AUTO) 4.5 %; HCT - HEMATOCRIT 26.8 % (37.0-47.0); HGB - HEMOGLOBIN 8.1 g/dL (12.0-16.0); LYMPHOCYTES # (AUTO) 1.5 10^3/uL (1.5-3.5); MEAN CORPUSCULAR HGB CONC 30.2 g/dL (32.0-36.0); MEAN CORPUSCULAR VOLUME 72.6 fL (81.0-99.0); MEAN PLATELET VOLUME 9.1 fL (7.9-10.8); MONOCYTES # (AUTO) 0.7 10^3/uL (0.0-1.0); MONOCYTES % (AUTO) 15.2 %; NEUTROPHILS # (AUTO) 2.1 10^3/uL (1.5-6.6); NEUTROPHILS % (AUTO) 45.6 %; PLT - PLATELET COUNT 280 10^3/uL (130-450); RED BLOOD COUNT 3.69 10^6/uL (4.20-5.40); RED CELL DISTRIBUTION WIDTH 18.5 % (12.0-15.0); WHITE BLOOD COUNT 4.7 x10^3/uL (4.8-10.8)
[2024-05-25 06:18] LABS: CALCIUM 8.3 mg/dL (8.5-10.3); CREATININE 0.8 mg/dL (0.6-1.3); POTASSIUM 3.3 mmol/L (3.5-4.5)
[2024-05-25 06:33] LABS: % IRON SATURATION 6 % (20-50); IRON 17 ug/dL (50-212); TOTAL IRON BINDING CAPACITY 304 ug/dL (250-450); TRANSFERRIN 217 mg/dL (203-362)
--- NOTE | 2024-05-25 12:16 | PROVIDER PROGRESS NOTE ---
<Statement entered by Sebastian Hoyos MD - 05/25/24 17:39> I have evaluated and examined the pt and agree with the note below with the following additions and corrections: Continued frequent watery diarrhea, nonbloody, no abd pain. Tolerating po intake. No gross bleeding. Mild improvement overall in po intake tolerance without abd pain. Exam: MMM, abd soft, NT, ND, BS+, alert. Mild tenderness to palpation R flank, no CVA tenderness. no midline spine tenderness. - azithromycin x 3 days for prolonged campylobacter infection - iv fe x1 inpt - KEY prerenal from diarrhea. Resolved. D/c iv fluids. - hypokalemia due to diarrhea- po supp, repeat BMP in am - flank pain likely MSK/muscle strain or spasm related to lying in bed. - likely d/c in am if diarrhea improved and H/H stable - updated sister who is an MD, David Stewart by phone: [phone] - pt agrees with plan Subjective Prog Note Date Prog Note Date: 05/25/24 Prog Note Time: 11:52 Subjective Pt reports feeling: Improved Subjective: The patient reports that she feels better since yesterday after one dose of Azithromycin, but is still having diarrhea--4 bouts this morning. She denies any new symptoms, nausea, vomiting, stomach pain, fever or chills. She continues to have right-sided back pain that is present when she twists side to side. She reports that she feels well-hydrated.. The patient expressed concern about her bouts of diarrhea and being able to eat solid foods. With shared decision- making, we discussed staying another night in hospital to monitor her condition for improvement. Current Medications Current Medications Current Medications: Current Medications Generic Name Dose Route Start Last Admin Trade Name Freq PRN Reason Stop Dose Admin Acetaminophen 650 mg 05/23/24 15:56 05/24/24 16:16 Acetaminophen 325 Mg Tablet PO 650 mg Q4HR PRN Administration Pain 1 to 4, or Fever Alprazolam 0.5 mg 05/23/24 23:00 05/24/24 22:17 Alprazolam 0.25 Mg Tablet PO 0.5 mg Q24H JACKELYN Administration Azithromycin 500 mg 05/24/24 13:00 05/25/24 09:42 Azithromycin 250 Mg Tablet PO 05/26/24 09:01 500 mg DAILY JACKELYN Administration Diphenoxylate HCl/Atropine 1 tab 05/23/24 17:29 05/25/24 11:47 Diphenox/Atropine 2.5/0.025 Mg Tablet PO 1 tab QID PRN Administration Diarrhea Hydroxyzine Pamoate 25 mg 05/23/24 21:00 05/24/24 22:17 Hydroxyzine Pamoate 25 Mg Capsule PO 25 mg HS JACKELYN Administration Ferric Sodium Gluconate 110 mls @ 100 mls/hr 05/25/24 12:00 Complex 125 mg/ Sodium IV 05/25/24 13:05 Chloride ONCE ONE Ondansetron HCl 4 mg 05/23/24 15:56 Ondansetron Odt 4 Mg Tablet TL Q6HR PRN Nausea / Vomiting Ondansetron HCl 4 mg 05/23/24 15:56 Ondansetron 4 Mg/2 Ml Vial IVP Q6HR PRN Nausea / Vomiting Rozerem 8mg Tabs 1 each 05/24/24 09:00 05/25/24 09:42 PO Not Given DAILY JACKELYN Sodium Chloride 10 ml 05/23/24 15:56 Sodium Chloride Flush 0.9% 10 Ml Syringe IVP PRN PRN NEEDED PER PROVIDER ORDERS Sodium Chloride 10 ml 05/23/24 17:00 05/25/24 09:43 Sodium Chloride Flush 0.9% 10 Ml Syringe IVP 10 ml 0100,0900,1700 JACKELYN Administration Trazodone HCl 50 mg 05/23/24 21:00 05/24/24 22:17 Trazodone 50 Mg Tablet PO 50 mg QPM JACKELYN Administration Objective Vital Signs/Intake & Output Reviewed Vital Signs: Yes Vital Signs: Vital Signs x48h Temp Pulse Resp BP Pulse Ox 05/25/24 08:46 37.1 C 84 16 103/57 L 96 05/25/24 04:51 36.7 C 85 16 119/60 99 Intake & Output: Intake & Output 05/22/24 05/23/24 05/24/24 05/25/24 23:59 23:59 23:59 23:59 Intake Total 2740 / 2740 2966 / 2966 1786 / 1786 Output Total 200 / 200 Balance 2540 / 2540 2966 / 2966 1786 / 1786 Weight (kg) 46 kg Objective General Appearance: positive No acute distress and Alert Eyes Bilateral: positive Normal inspection ENT: positive No signs of dehydration Neck: positive Nml inspection Abdomen: positive Non-tender and No distention Back: positive Nml inspection and Other (TTP mid-lower right); negative CVA tenderness (R) or CVA tenderness (L) Skin: positive Color nml, No rash and Warm Neurologic/Psychiatric: positive Oriented x3 and Mood/affect nml Lab Results 05/25/24 05:26 05/25/24 05:26 Other Labs: Lab Results x24hrs 05/25/24 Range/Units 05:26 WBC 4.7 L (4.8-10.8) x10^3/uL RBC 3.69 L (4.20-5.40) 10^6/uL Hgb 8.1 L (12.0-16.0) g/dL Hct 26.8 L (37.0-47.0) % MCV 72.6 L (81.0-99.0) fL MCH 22.0 L (27.0-31.0) pg MCHC 30.2 L (32.0-36.0) g/dL RDW 18.5 H (12.0-15.0) % Plt Count 280 (130-450) 10^3/uL MPV 9.1 (7.9-10.8) fL Neut # (Auto) 2.1 (1.5-6.6) 10^3/uL Lymph # (Auto) 1.5 (1.5-3.5) 10^3/uL Carson # (Auto) 0.7 (0.0-1.0) 10^3/uL Eos # (Auto) 0.2 (0.0-0.7) 10^3/uL Baso # (Auto) 0.1 (0.0-0.1) 10^3/uL Absolute Nucleated RBC 0.00 x10^3/uL Nucleated RBC % 0.0 /100WBC Sodium 140 (135-145) mmol/L Potassium 3.3 L (3.5-4.5) mmol/L Chloride 111 (101-111) mmol/L Carbon Dioxide 26 (21-32) mmol/L Anion Gap 3.0 L (6-13) BUN 14 (6-20) mg/dL Creatinine 0.8 (0.6-1.3) mg/dL Estimated GFR (MDRD) 71 L (>89) Glucose 84 (74-104) mg/dL Calcium 8.3 L (8.5-10.3) mg/dL Iron 17 L (50-212) ug/dL TIBC 304 (250-450) ug/dL % Saturation 6 L (20-50) % Transferrin 217 (203-362) mg/dL Diagnostic Imaging Diagnostic Imaging Results: positive Final report reviewed ABX Reporting Has patient been on IV antibiotics over the past 48 hours?: No Sepsis Event Note (H) Evaluation Current Stage of Sepsis: Ruled out Assessment/Plan Problem List (1) KEY (acute kidney injury): Impression: Improved kidney function: Creatinine: 0.8 mg/dL BUN: 14 mg/dL GFR: 71 Discussed transitioning from IV fluids to oral. (2) Diarrhea: Impression: Patient reported that she is still having diarrhea. RN logged 4x diarrhea this morning. Continue to monitor for improvement on continued treatment with Azithromycin. Qualifiers: Diarrhea type: unspecified type Qualified Code(s): R19.7 - Diarrhea, unspecified (3) Hyponatremia: Impression: Sodium level is stable at 140 mmol/L. (4) Hypokalemia: Impression: Potassium level decreased slightly from 3.5 to 3.3 mmol/L, which is not significant and likely due to increased hydration. Will recheck 05/26. (5) Microcytic hypochromic anemia: Impression: Patient's chronic anemia is stable. With shared decision-making with medical team, an IV iron infusion before discharge was discussed.
[2024-05-25] MEDS: POTASSIUM CHLORIDE 20 MEQ TABLET PO ONE (12:30)
[2024-05-25] MEDS: FERRIC GLUCONATE 125 MG in SODIUM CHLORIDE 0.9% 100ML 100 ML IV ONE (12:31)
[2024-05-25 15:43] VITALS: TEMP 97.9
[2024-05-25] MEDS: PSYLLIUM PACKET PO SCH (16:38)
[2024-05-25] MEDS: LACTOBACILLUS RHAMNOSUS GG CAPSULE PO SCH (16:49)
[2024-05-26] MEDS: LATANOPROST 0.005% OPHTH DROPS EACHEYE SCH (00:33)
[2024-05-26 05:53] LABS: BASOPHILS # (AUTO) 0.1 10^3/uL (0.0-0.1); BASOPHILS % (AUTO) 0.9 %; EOSINOPHILS # (AUTO) 0.3 10^3/uL (0.0-0.7); EOSINOPHILS % (AUTO) 4.4 %; HCT - HEMATOCRIT 28.8 % (37.0-47.0); HGB - HEMOGLOBIN 8.7 g/dL (12.0-16.0); LYMPHOCYTES # (AUTO) 1.8 10^3/uL (1.5-3.5); LYMPHOCYTES % (AUTO) 28.3 %; MEAN CORPUSCULAR HEMOGLOBIN 22.1 pg (27.0-31.0); MEAN CORPUSCULAR HGB CONC 30.2 g/dL (32.0-36.0); MEAN CORPUSCULAR VOLUME 73.1 fL (81.0-99.0); MEAN PLATELET VOLUME 8.9 fL (7.9-10.8); MONOCYTES # (AUTO) 0.7 10^3/uL (0.0-1.0); MONOCYTES % (AUTO) 10.4 %; NEUTROPHILS # (AUTO) 3.5 10^3/uL (1.5-6.6); NEUTROPHILS % (AUTO) 54.3 %; PLT - PLATELET COUNT 342 10^3/uL (130-450); RED BLOOD COUNT 3.94 10^6/uL (4.20-5.40); RED CELL DISTRIBUTION WIDTH 18.9 % (12.0-15.0); WHITE BLOOD COUNT 6.4 x10^3/uL (4.8-10.8)
[2024-05-26 06:10] LABS: CALCIUM 8.5 mg/dL (8.5-10.3); CREATININE 0.8 mg/dL (0.6-1.3)
[2024-05-26] MEDS: LACTOBACILLUS RHAMNOSUS GG CAPSULE PO SCH (09:12)
[2024-05-26 12:04] VITALS: BP 130/80; O2SAT 93
--- NOTE | 2024-05-30 20:31 | Discharge Summary ---
Discharge Summary Admit Date: 05/23/24 Discharge Date: 05/26/24 Discharging Provider: Sebastian Hoyos MD DIAGNOSES Admission Diagnoses: KEY Diarrhea Hyponatremia Hypokalemia Microcytic anemia Neutrophilia Discharge Diagnoses with Status of Each Condition: KEY, resolved Campylobacter Diarrhea, improved Hyponatremia, resolved Hypokalemia, resolved Microcytic anemia Neutrophilia, resolved musculoskeletal flank pain HPI History of Present Illness: 69 y/o female with a history of Roue-en-y gastric bypass, umbilical hernia, and valvular HD presenting with diarrhea for 7 days since 05/16. She reports fever for 3 days at the beginning of her acute illness. Her CT abdomen w/o contrast on 05/23 was unremarkable--no signs of obstruction, hydronephrosis, diverticular disease, or other pathologies. She denies bloody stools, vomiting, sweating, or palpitations. Denies recent travel or exposures. She and her maintain a second home in [place] and she travels between [facility] and [facility]. The patient denies prior history of diarrhea, even after gastric bypass. She reports possible untreated diabetes. She reports her last colonoscopy was possibly 10 years ago and she is due for a repeat. She denies any GI issues including ulcers or food intolerances or previous food poisoning. The patient reports consuming BRAT diet d/t illness and requested to continue solid food HOSPITAL COURSE Hospital Course: 1. KEY: Prerenal in setting of diarrhea. She was treated with iv fluids and antibiotics. Cr trended down and was normal on day of discharge. 2. Campylobacter Diarrhea: GI PCR positive for Campylobacter. She had no signs or symptoms of invasive or severe infection (no fever, severe abd pain, bloody stool), but given prolonged course of diarrhea she was treated with azithromcyin x 3 days. Diarrhea improved and pt tolerated po intake of fluid and solids without problems. 3. Hyponatremia: Hypovolemic hyponatremia. Normalized with the treatments listed above. 4. Hypokalemia: Due to GI losses. Normalized with treatments listed above. 5. Microcytic anemia: Iron studies revealed iron deficiency and pt was given one dose i.v. iron prior to discharge. History of gastric bypass and has required iron infusions in the past. Pt would benefit from outpt hematology eval and can be referred to see hematology at [facility]. Her hgb on day of discharge was 8.7. 6. musculoskeletal flank pain: Pain character not consistent with CVA tenderness or intraabdominal pathology. Primarily positional, likely due to prolonged time in bed. Pain was mild. She can use tylenol and ibuprofen prn. ALLERGIES Allergies Allergy/AdvReac Type Severity Reaction Status Date / Time ondansetron Allergy Severe Rash Verified 05/23/24 11:19 MEDICATIONS Ambulatory Orders Medication Instructions Recorded Confirmed alprazolam 1 mg tablet 0.5 mg PO HS 12/05/23 05/23/24 trazodone 50 mg tablet 50 mg PO QDAY 12/05/23 05/23/24 alendronate 70 mg tablet 70 mg PO ONCE 05/23/24 05/23/24 baclofen 10 mg tablet 10 mg PO TID PRN muscle spasm 05/23/24 05/23/24 citalopram 40 mg tablet 40 mg PO ONCE 05/23/24 05/23/24 hydroxyzine HCl 25 mg tablet 25 mg PO HS 05/23/24 05/23/24 ramelteon 8 mg tablet 8 mg PO DAILY 05/23/24 05/23/24 tolterodine 2 mg capsule,extended 2 mg PO ONCE 05/23/24 05/23/24 release 24 hr Lactobacillus rhamnosus GG 10 1 cap PO DAILY #14 caps 05/26/24 billion cell capsule (Culturelle) diphenoxylate-atropine 2.5 1 tab PO QID PRN Diarrhea #14 tabs 05/26/24 mg-0.025 mg tablet PHYSICAL EXAM AT DISCHARGE Vital Signs: MMM, abd soft, NT, ND, BS+, alert. Mild tenderness to palpation R flank, no CVA tenderness. no midline spine tenderness. LABS 05/26/24 05:17 05/26/24 05:17 SEPSIS Current Stage of Sepsis: Ruled out TIME SPENT Time Spent in Discharge (Minutes): 20 Discharge Plan Discharge Patient Disposition: 01 Home, Self Care Condition: Stable Medically Cleared Date:: 05/26/24 Prescriptions: New diphenoxylate-atropine 2.5-0.025 mg Tablet 1 tab PO QID PRN (Reason: Diarrhea) Qty: 14 0RF Culturelle 10 billion cell Capsule 1 cap PO DAILY Qty: 14 0RF Continued ramelteon 8 mg tablet 8 mg PO DAILY Patient Comments: take 1 tablet by mouth at bedtime alendronate 70 mg tablet 70 mg PO ONCE Patient Comments: take 1 tablet by mouth every week hydroxyzine HCl 25 mg tablet 25 mg PO HS Patient Comments: take 1 tablet by mouth at bedtime baclofen 10 mg tablet 10 mg PO TID PRN (Reason: muscle spasm) Patient Comments: take 1 tablet by mouth three times a day if needed for muscle spasm tolterodine 2 mg capsule,extended release 24hr 2 mg PO ONCE Patient Comments: take 1 capsule by mouth once daily citalopram 40 mg tablet 40 mg PO ONCE Patient Comments: take 1 tablet by mouth once daily alprazolam 1 mg tablet 0.5 mg PO HS trazodone 50 mg tablet 50 mg PO QDAY Activity Restrictions: Activity as Tolerated Diet: Regular Plan of Treatment: You were found to have diarrhea caused by the bacteria Campylobacter jejuni. You received an antibiotic (Azithromycin) course during your stay. Your kidney function has returned to normal. We expect the diarrhea to continue to improve and resolve over the next few days. It is important to drink plenty of fluids to stay hydrated. Continue culturelle or other probiotic to help with diarrhea. You have also been prescribed an antidiarrheal medicine to be used as needed. You received 1 dose of i.v. iron for your iron deficiency anemia. Please ask your primary care provider to send a referral for you to establish care with a opal miner at [facility]. Contact your primary care provider or return to the hospital if you have increased abdominal pain, fevers, bloody stool, vomiting, lightheadedness, severe fatigue, or for any other concerns. Print Language: Qatari Patient Instructions: Campylobacter Infec Stand Alone Forms: PCP List Follow-up Care: other [Other] (Ask your primary care provider for a referral to hematology at [facility]. ) Keely Hernandez MD [Physician No Access] - (Follow up with your primary care provider in 1-2 weeks. )
[2024-06-01 17:09] LABS: OVA + PARASITE EXAM Final report (.)
== END 2024-05-26 13:50 | disposition home or self-care (01) | DRG 372 ==
LOC: ED 10:46 → MS2 10:46
PROVIDERS: ADMIT Specialist; ATTEND Specialist
DX: D72.828 Other elevated white blood cell count; Z98.84 Bariatric surgery status; M79.18 Myalgia, other site; N17.9 Acute kidney failure, unspecified; A04.5 Campylobacter enteritis; Z79.899 Other long term (current) drug therapy; D50.9 Iron deficiency anemia, unspecified; E87.6 Hypokalemia; R19.7 Diarrhea, unspecified; Z87.891 Personal history of nicotine dependence; E86.1 Hypovolemia; R25.2 Cramp and spasm; E86.0 Dehydration; E87.1 Hypo-osmolality and hyponatremia